=== PATIENT | female | born 1990 ===

== ENCOUNTER 2019-01-05 02:19 | Emergency (ER) | payer SELFPAY ==
[2019-01-05 02:26] VITALS: BMI 21.6
[2019-01-05 02:29] VITALS: O2SAT 100
--- NOTE | 2019-01-05 04:15 | ED PDOC ---
Lower Extremity Pain/Injury Time Seen by Provider: 01/05/19 02:27 Chief Complaint (Nursing): Lower Extremity Problem/Injury Chief Complaint (Provider): Lower Extremity Problem/Injury History Per: Patient History/Exam Limitations: no limitations Additional Complaint(s): 28 years old female presents to ER for evaluation of bilateral ankle bruising and pain. Patient reports she was attempting to jump off a metal fence and her feet got caught in the middle of wiring. PMD: None provided Past Medical History Reviewed: Historical Data, Nursing Documentation, Vital Signs Vital Signs: Last Vital Signs Temp 98.7 F 01/05/19 02:26 Pulse 102 H 01/05/19 02:26 Resp 18 01/05/19 02:26 BP 145/84 01/05/19 02:26 Pulse Ox 100 01/05/19 02:26 - Medical History PMH: No Chronic Diseases - Surgical History Surgical History: No Surg Hx - Family History Family History: States: Unknown Family Hx - Home Medications Home Medications: Ambulatory Orders Medication Instructions Recorded Naproxen [Naprosyn] 500 mg PO BID #30 tablet 01/05/19 - Allergies Allergies/Adverse Reactions: Allergies Allergy/AdvReac Type Severity Reaction Status Date / Time No Known Allergies Allergy Verified 01/05/19 02:26 Review of Systems ROS Statement: Except As Marked, All Systems Reviewed And Found Negative Musculoskeletal: Positive for: Foot Pain (Bilateral ankle pain) Skin: Positive for: Bruising (to bilateral ankle) Physical Exam - Reviewed Nursing Documentation Reviewed: Yes Vital Signs Reviewed: Yes - Physical Exam Appears: Positive for: Well, No Acute Distress. Negative for: Non-toxic (patient is intoxicated appearing) Head Exam: Positive for: ATRAUMATIC, NORMOCEPHALIC Skin: Positive for: Normal Color, Warm, Dry Neck: Positive for: Normal, Painless ROM, Supple Cardiovascular/Chest: Positive for: Regular Rate, Rhythm. Negative for: Murmur Respiratory: Positive for: Normal Breath Sounds. Negative for: Respiratory Distress Extremity: Positive for: Normal ROM (of ankles and knees bilaterally), Other (scattered ecchymosis to lower legs bilaterally). Negative for: Deformity (of ankle) Neurological/Psych: Positive for: Awake, Alert, Oriented (x3) - ECG O2 Sat by Pulse Oximetry: 100 (RA) Pulse Ox Interpretation: Normal Medical Decision Making Medical Decision Making: Time: 0248 A/P: Ankle contusion vs. less likely fracture --Will get x-ray and reeval 0600 --Patient has negative x-rays --Will discharge home with podiatry followup as needed Scribe Attestation: Documented by Estelita Montes De Oca, acting as a scribe for Ramon Humphrey MD. Provider Scribe Attestation: All medical record entries made by the Scribe were at my direction and personally dictated by me. I have reviewed the chart and agree that the record accurately reflects my personal performance of the history, physical exam, medical decision making, and the department course for this patient. I have also personally directed, reviewed, and agree with the discharge instructions and disposition. Disposition - Clinical Impression Clinical Impression: Ankle contusion - Patient ED Disposition Is Patient to be Admitted: No - Disposition Referrals: Podiatry Clinic [Outside] Disposition: Routine/Home Disposition Time: 06:20 Condition: GOOD Prescriptions: Naproxen [Naprosyn] 500 mg PO BID #30 tablet Instructions: Contusion (DC) Forms: [email or web address] ([place]ian)
[2019-01-05 07:35] VITALS: BP 118/71; PULSE 70; RESP 16; TEMP 97.8
--- NOTE | 2019-01-05 09:02 | RAD ---
Date of service: 01/05/2019 PROCEDURE: BILATERAL ANKLE RADIOGRAPHS HISTORY: bilateral ankle pain after fall COMPARISON: NONE AVAILABLE. TECHNIQUE: AP lateral and mortise views of the bilateral ankles have been submitted for interpretation. Six views submitted in total. FINDINGS: No acute fracture, dislocation or suspicious lytic or blastic change appreciated bilaterally. The ankle mortise ease are intact as well as the talar domes. Local soft tissues appear diffusely unremarkable. IMPRESSION: No acute fracture or dislocation bilateral ankles.
== END 2019-01-05 06:41 | disposition home or self-care (01) ==
LOC: H.ER 02:19
DX: S90.02XA Contusion of left ankle, initial encounter (principal); W22.8XXA Striking against or struck by other objects, initial encounter; Y92.89 Other specified places as the place of occurrence of the external cause